=== PATIENT | female | born 1950 | race Caucasian/White ===

== ENCOUNTER 2017-01-22 11:10 | Observation (INO) ==
--- NOTE | 2017-01-22 11:26 | Emergency Department Note ---
Disposition Clinical Impression: Vertigo Headache Qualifiers: Headache type: unspecified Headache chronicity pattern: unspecified pattern Intractability: not intractable Qualified Code(s): R51 - Headache Disposition: Home, Self-Care Referrals: Prieto Diallo DO [Primary Care Provider] - Forms: ED Satisfaction Letter Time of Disposition: 14:13 Dizziness HPI - General Chief Complaint: ED Dizziness Stated Complaint: dizziness Time Seen by Provider: 01/22/17 11:20 Source: patient Limitations: no limitations Nursing Notes Reviewed: Yes Vital Signs Reviewed: Yes - History of Present Illness HPI Narrative: Patient is a 66-year-old female with past medical history of breast cancer, depression. She presents today due to vertigo, headache. Patient says that she follows up with [facility] for cancer care. She is currently on anastrazole and has been on this medication for the past year and a half. She said that she used to be on citalopram for depression but was off it for a couple months. However, she followed up with her primary care physician and was started on citalopram again for depression. This medication was started 3 days ago. 2 days ago, the patient started developing dizziness she describes as the room spinning. She also has generalized headache. This has persisted for the past 2 days. This morning, she woke up and felt unwell, still having vertigo, still having headache. She denies any other numbness, tingling, weakness, falls, injuries, chest pain, shortness of breath, nausea, vomiting, fevers, diarrhea, abdominal pain. At first, they thought this was possibly a medication reaction. However, the patient says that she has been on this medication in the past and this is actually decreased dose from what she was on before. She used to be on 20 mg citalopram and was prescribed 10 mg citalopram this time. - Related Data Home Medications Medication Instructions Recorded Confirmed Aspirin [Adult Low Dose Aspirin EC] 1 tab PO DAILY 08/04/15 08/04/15 Calcium Carbonate/Vitamin D3 2 tab PO DAILY 08/04/15 08/04/15 [Caltrate 600 + D Soft Chew Tab] Citalopram [CeleXA] 1 tab PO DAILY 08/04/15 08/04/15 LORazepam [Ativan] 1 tab PO DAILY 08/04/15 08/04/15 Losartan/Hydrochlorothiazide 1 tab PO DAILY 08/04/15 08/04/15 [Hyzaar 100-25 Tablet] Multivitamin [Multivitamins] 1 tab PO DAILY 08/04/15 08/04/15 Allergies Allergy/AdvReac Type Severity Reaction Status Date / Time No Known Allergies Allergy Verified 01/22/17 11:21 All systems ED: reviewed and negative except as stated. Constitutional: Denies: fever Cardiovascular: Denies: chest pain, palpitations Respiratory: Denies: cough, dyspnea, wheezes Gastrointestinal: Denies: abdominal pain, nausea, vomiting, diarrhea Neurological: Reports: headache, vertigo. Denies: weakness, numbness, paresthesias Psychiatric: Reports: depression. Denies: suicidal thoughts, homicidal thoughts , auditory hallucinations, visual hallucinations Past Medical History - Past Medical History Attestation: Yes The following information was validated with the patient. Source: patient Medical history: Reports: cancer, hypertension Psychiatric history: Reports: depression [employer] history: Reports: non-contributory - Social History Smoking Status: Never smoker Smokeless Tobacco Status: No Alcohol use: Reports: none Drug use: Reports: none Physical Exam - General Limitations: no limitations General appearance: alert, in no apparent distress - Head Head exam: atraumatic, normocephalic, normal inspection - Eye Eye exam: Present: normal appearance, PERRL, EOMI - ENT ENT exam: normal exam, normal oropharynx, mucous membranes moist - Neck Neck exam: Present: normal inspection, full ROM, trachea midline. Absent: tenderness - Chest Chest inspection: Present: normal inspection, symmetric chest wall rise - Respiratory Respiratory exam: Present: normal lung sounds bilaterally - Cardiovascular Cardiovascular exam: Present: regular rate, normal rhythm, normal heart sounds - Abdominal Exam Abdominal exam: Present: soft, Non-Tender. Absent: tenderness, distention, guarding, rebound, rigidity - Extremities Exam Extremities exam: Present: normal inspection, full ROM. Absent: tenderness, pedal edema - Neurological Exam Neurological exam: Present: alert, oriented X3, CN II-XII intact. Absent: motor sensory deficit - Psychiatric Psychiatric exam: Present: normal affect, normal mood - Skin Skin exam: Present: warm, dry, intact, normal color Course Course Narrative: Blood pressure mildly elevated, otherwise, the rest of vitals within normal limits. Physical exam benign. No signs of any head trauma, no tenderness to palpation of the neck or meningeal signs, no focal neurologic deficits, heart and lung exam benign. Abdominal exam benign. patient says that she is not experiencing vertigo at this time. She is declined Antivert. I discussed getting an MRI for investigation of cerebellar infarct. However, she says that she cannot have an MRI due to previous maxillofacial surgery and was told that she was not allowed to have MRI after surgery. Therefore, I will get a CT of the head. We will also give the patient Toradol for headache. Will also obtain basic electrolytes, tropnin, EKG, CXR. 14:03 EKG shows normal sinus rhythm with no acute ST changes. Troponin negative. No major electrolyte abnormality. CBC within normal limits. CT of the head was negative for any acute intracranial abnormality. Chest x-ray was negative for any acute cardiopulmonary process. As also discussed with the patient. For that she is still having headache. She has been having intermittent episodes of vertigo during her stay. She is agreeable with trying Antivert at this time. Also recommended admission for further stroke workup including carotid Doppler. Vital Signs Temperature 97.5 F L 01/22/17 11:18 Pulse Rate 82 01/22/17 11:18 Respiratory Rate 20 01/22/17 11:18 Blood Pressure 159/78 01/22/17 11:18 O2 Sat by Pulse Oximetry 100 01/22/17 11:18 Temperature 97.5 F L 01/22/17 11:18 Pulse Rate 66 01/22/17 14:07 Respiratory Rate 16 01/22/17 14:07 Blood Pressure 167/84 01/22/17 14:07 O2 Sat by Pulse Oximetry 98 01/22/17 14:07 Oxygen Delivery Oxygen Delivery Room Air Dizziness - MDM Narrative Medical decision making narrative: EKG shows normal sinus rhythm with no acute ST changes. Troponin negative. No major electrolyte abnormality. CBC within normal limits. CT of the head was negative for any acute intracranial abnormality. Chest x-ray was negative for any acute cardiopulmonary process. As also discussed with the patient. For that she is still having headache. She has been having intermittent episodes of vertigo during her stay. She is agreeable with trying Antivert at this time. Also recommended admission for further stroke workup including carotid Doppler. This could be medication interaction, inner ear issue, or cerebellar stroke. - Medical Records Medical records reviewed: Yes I reviewed the patient's medical records. - Lab Data Lab results reviewed: Yes I reviewed the patient's lab results. Result diagrams: 01/22/17 12:00 01/22/17 12:00 Lab Results 01/22/17 01/22/17 01/22/17 Range/Units 12:00 12:00 12:00 WBC 8.0 (4.3-11.1) K/mcL RBC 4.44 (3.82-4.97) M/mcL Hgb 12.7 (11.5-15.4) g/dL Hct 38.6 (35.3-44.9) % MCV 86.9 (83.0-100.0) fL MCH 28.6 (28.0-33.3) pg MCHC 32.9 (31.6-35.5) g/dL RDW 12.2 (11.5-14.5) % Plt Count 202 (140-400) K/mcL MPV 9.5 (9.4-12.4) fL Immature Gran % 0.3 (0-4) % Seg Neutrophils % 85.4 % Lymphocytes % 11.5 % Monocytes % 2.3 % Eosinophils % 0.1 % Basophils % 0.4 % Neutrophils # 6.8 (1.6-8.9) K/mcL Lymphocytes # 0.9 (0.6-4.6) K/mcL Monocytes # 0.2 (0.0-1.3) K/mcL Eosinophils # 0.0 (0.0-0.6) K/mcL Basophils # 0.0 (0.0-0.2) K/mcL Sodium 139 (136-145) mEq/L Potassium 3.8 (3.5-4.5) mEq/L Chloride 104 (98-109) mEq/L Carbon Dioxide 28 (19-29) mEq/L BUN 13 (7-20) mg/dL Creatinine 0.81 (0.57-1.11) mg/dL Est GFR ( Amer) > 60 (> 60) Est GFR (Non-Af Amer) > 60 (> 60) BUN/Creatinine Ratio 16 (6-26) Glucose 107 H (70-99) mg/dL POC Glucose (58-89) Calculated Osmolality 289 (280-300) Calcium 9.7 (8.6-10.8) mg/dL Phosphorus 2.2 L (2.3-4.7) mg/dL Magnesium 1.9 (1.6-2.6) mg/dL Troponin I 0.00 (0-0.03) ng/mL 01/22/17 Range/Units 12:06 WBC (4.3-11.1) K/mcL RBC (3.82-4.97) M/mcL Hgb (11.5-15.4) g/dL Hct (35.3-44.9) % MCV (83.0-100.0) fL MCH (28.0-33.3) pg MCHC (31.6-35.5) g/dL RDW (11.5-14.5) % Plt Count (140-400) K/mcL MPV (9.4-12.4) fL Immature Gran % (0-4) % Seg Neutrophils % % Lymphocytes % % Monocytes % % Eosinophils % % Basophils % % Neutrophils # (1.6-8.9) K/mcL Lymphocytes # (0.6-4.6) K/mcL Monocytes # (0.0-1.3) K/mcL Eosinophils # (0.0-0.6) K/mcL Basophils # (0.0-0.2) K/mcL Sodium (136-145) mEq/L Potassium (3.5-4.5) mEq/L Chloride (98-109) mEq/L Carbon Dioxide (19-29) mEq/L BUN (7-20) mg/dL Creatinine (0.57-1.11) mg/dL Est GFR ( Amer) (> 60) Est GFR (Non-Af Amer) (> 60) BUN/Creatinine Ratio (6-26) Glucose (70-99) mg/dL POC Glucose 91 H (58-89) Calculated Osmolality (280-300) Calcium (8.6-10.8) mg/dL Phosphorus (2.3-4.7) mg/dL Magnesium (1.6-2.6) mg/dL Troponin I (0-0.03) ng/mL - Radiology Data Radiology results reviewed: Yes I reviewed the patient's radiology results. Chest X-Ray 01/22/17 11:50 IMPRESSION: No acute abnormality. D/ / Williams Mohan MD / Williams Mohan MD Interpreting Provider: Williams Mohan MD Head CT 01/22/17 11:50 IMPRESSION: No evidence of acute intracranial abnormality. D/ / 01/22/2017 12:40:04 Zaid Lin MD / Lelia Ny Interpreting Provider: Zaid Lin MD - EKG Data EKG attestation: Yes I reviewed and interpreted this EKG. EKG results narrative: 01/22/2017 at 11:34. Normal sinus rhythm. Rate 73. AK 145. QRS 98. QTC 425. No acute ST elevation or depression. S.B.A.R. - S.B.AShantell Situation: Demographics, MOA Background: Presenting Complaint, Relevant PMH, Meds, & Allergies Assessment: Vital Signs, Course and respsone to treatment, Exam Concerns, Patient/Family Expectation, Pertinant Lab Results Recommendation: Barrier(s) to disposition, Recommendation based on pending studies, treatments, or consults S.B.A.RTrisha Report Given to: Dr. Teresa Schmidt Repor Time: 14:13
[2017-01-22] MEDS ORDERED: 0.9 % Sodium Chloride 1,000 ML IVC ONE (11:50)
--- NOTE | 2017-01-22 11:53 | Emergency Department Note ---
START Narrative - START START: I examined this patient and my medical decision-making was reviewed with the emergency medicine resident. I agree with the documented findings, disposition and treatment plan as described except to the extent set forth below. Patient seen with emergency medicine resident Dr. Stepan Pena, Please see a copy of his note for details of the H&P, ED evaluation, management and disposition. I have independently evaluated the patient and confirmed appropriate portions of the history and physical exam. 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 Neurologically nonfocal GCS 15 afebrile with stable vital signs. No loss of consciousness chest pain shortness of breath for trauma. EKG shows sinus rhythm without acute ischemic changes but no old EKG available for comparison troponin screening labs are pending. As well as noncontrast head CT. Patient get IV fluids and antibiotics at this time but declines Antivert because she says "not dizzy right now". Disposition pending.
[2017-01-22 12:12] LABS: Basophils % 0.4 %; Eosinophils % 0.1 %; Hematocrit 38.6 % (35.3-44.9); Hemoglobin 12.7 g/dL (11.5-15.4); Immature Granulocytes % 0.3 % (0-4); Lymphocytes # 0.9 K/mcL (0.6-4.6); Lymphocytes % 11.5 %; Mean Corpuscular HGB Conc 32.9 g/dL (31.6-35.5); Mean Corpuscular Hemoglobin 28.6 pg (28.0-33.3); Mean Corpuscular Volume 86.9 fL (83.0-100.0); Mean Platelet Volume 9.5 fL (9.4-12.4); Monocytes # 0.2 K/mcL (0.0-1.3); Monocytes % 2.3 %; Neutrophils # 6.8 K/mcL (1.6-8.9); Platelet Count 202 K/mcL (140-400); Red Blood Count 4.44 M/mcL (3.82-4.97); Red Cell Distribution Width 12.2 % (11.5-14.5); Segmented Neutrophils % 85.4 %
[2017-01-22 12:37] LABS: BUN/Creatinine Ratio 16 (6-26); Blood Urea Nitrogen 13 mg/dL (7-20); Calcium 9.7 mg/dL (8.6-10.8); Carbon Dioxide 28 mEq/L (19-29); Chloride 104 mEq/L (98-109); Glucose 107 mg/dL (70-99); Magnesium 1.9 mg/dL (1.6-2.6); Osmolality,Calculated 289 (280-300); Phosphorous 2.2 mg/dL (2.3-4.7); Potassium 3.8 mEq/L (3.5-4.5); Sodium 139 mEq/L (136-145); eGFR For African Americans > 60 (> 60); eGFR For Non-African Americans > 60 (> 60)
[2017-01-22] MEDS ORDERED: Ketorolac 15 MG/ML VIAL IVP ONE (13:27)
[2017-01-22] MEDS ORDERED: Ondansetron 4 MG/2 ML VIAL IVP PRN (14:46)
[2017-01-22] MEDS ORDERED: Ibuprofen 400 MG TABLET PO PRN (14:46)
[2017-01-22] MEDS ORDERED: Acetaminophen 325 MG TABLET PO PRN (14:46)
[2017-01-22] MEDS ORDERED: Naloxone 0.4 MG/ML INJ IVP PRN (14:46)
[2017-01-22] MEDS ORDERED: *HR* LORazepam 1 MG TABLET PO PRN (14:49)
--- NOTE | 2017-01-22 14:55 | Internal Med History&Physical ---
Date of Encounter: 01/22/17 Time of Encounter: 14:52 Assessment and Plan (1) Vertigo Current visit: Yes Status: Acute Vertigo versus possible labyrinthitis Continue meclizine as needed, follow precautions, check orthostatics Ordered IV fluids, echocardiogram, telemetry Consider neurology consult if the patient develops more symptoms Omeprazole for GI prophylaxis and subcutaneous heparin for DVT prophylaxis. Patient will be admitted for observation. Full code. Time spent on this admission 40 minutes. High risk of falling (2) Accelerated hypertension Current visit: Yes Status: Acute Continue losartan and hydrochlorothiazide Add hydralazine has needed (3) Depression Current visit: Yes Status: Acute Hold citalopram for now Qualifiers: Depression Type: major depressive disorder Major depression recurrence: recurrent Major depression episode severity: unspecified Qualified Code(s): F33.9 - Major depressive disorder, recurrent, unspecified (4) Breast cancer Current visit: No Status: Acute Continue anastrozole Qualifiers: Breast location: upper inner quadrant of breast Estrogen receptor status: unspecified Patient sex: female Laterality: right Qualified Code(s): C50.211 - Malignant neoplasm of upper-inner quadrant of right female breast Internal Medicine - H&P: HPI Chief complaint: Dizziness Admitted From: Emergency Dept History of present illness: Ms. Huang is a 66 year old female with a past medical history of breast cancer status post chemotherapy and radiotherapy, hypertension, depression comes the emergency room complaining of more than 2 days of dizziness that started yesterday's afternoon. The patient is not sure how long. Lasted less than half an hour and described a spinning sensation that was felt again very early this morning. The symptoms coincided with the patient starting sitology primary again on Monday which she used to take in the past, now she is taking half of the dose which is 10 mg daily. She describes some headache pressure- like in both temporal areas accompanied by nausea. Headache was 5 out of 10 in intensity. Denies any nausea or dizziness at the moment, does not appear to be dehydrated. ER staff obtain a CT scan of the head did not show any abnormality , chest x-ray does not show any cardiac pulmonary disease. They intended to do an MRI but unfortunately the patient had a surgical procedure in the maxillofacial area that included wiring and was told never to have an MRI. The spinning sensation was present in the morning and subsided at the moment. Blood pressure is 167/84, denies any other symptoms Past Med Surg Social Fam HX - Past Medical History Medical history: cancer (Breast cancer status post chemotherapy and radiotherapy ), hypertension, other (Depression, bilateral moderate carotid stenoses 40-59%, anxiety) Psychiatric history: depression - Past Surgical History Surgical History: other (Breast surgery, maxillofacial surgery) - Social History Smoking Status: Never smoker Smokeless Tobacco Status: No Alcohol use: none Drug use: none - Additional Family History Additional family history: Brother with lung cancer, father with prostate cancer , mother with hypertension and CAD, sister with hypertension Internal Medicine - H&P: Meds Aspirin [Adult Low Dose Aspirin EC] 1 tab PO DAILY 08/04/15 [History] Calcium Carbonate/Vitamin D3 [Caltrate 600 + D Soft Chew Tab] 2 tab PO DAILY 04/08 [History] Citalopram [CeleXA] 1 tab PO DAILY 08/04/15 [History] LORazepam [Ativan] 1 tab PO DAILY 08/04/15 [History] Losartan/Hydrochlorothiazide [Hyzaar 100-25 Tablet] 1 tab PO DAILY 08/04/15 [ History] Multivitamin [Multivitamins] 1 tab PO DAILY 08/04/15 [History] 3 Allergy/AdvReac Type Severity Reaction Status Date / Time No Known Allergies Allergy Verified 01/22/17 11:21 All Systems PM: A 10-system review of systems was performed and is negative for pertinent findings except as documented above in the HPI. Review of systems: Mild headache, other systems out of the 10 reviewed were negative - Constitutional Vitals: Temp Pulse Resp BP Pulse Ox 97.5 F L 66 16 167/84 98 01/22/17 11:18 01/22/17 14:07 01/22/17 14:07 01/22/17 14:07 01/22/17 14:07 General appearance: Present: A&O X 3 (No nystagmus) - Head Head exam: Present: atraumatic, normocephalic - Eye Eye exam: Present: PERRL, conjuntiva pink, sclera anicteric Pupils: Present: PERRL - Neck Neck exam general surgery: Present: supple, trachea midline. Absent: lymphadenopathy - Respiratory Respiratory exam: Present: CTAB. Absent: accessory muscle use, rales, rhonchi, wheezes - Cardiovascular Cardiovascular exam: Present: RRR, +S1, +S2. Absent: diastolic murmur, gallop, rubs, systolic murmur - GI/Abdominal GI/Abdominal exam: Present: normal bowel sounds, soft, no peritoneal signs. Absent: distended, tenderness - Extremities Exam Extremities exam: Present: warm, radial pulses palpable and symmetrical. Absent : calf tenderness, cyanotic, pedal edema - Neurological Exam Neurological exam: Present: CN II-XII intact, oriented X3, no focal deficits. Absent: pronater drift, facial droop, speech deficit - Skin Skin exam: Present: dry, intact Internal Med - H&P Results - Labs CBC & Chem 7: 01/22/17 12:00 01/22/17 12:00
[2017-01-22] MEDS: 0.9 % Sodium Chloride 1,000 ML IVC SCH (17:02)
[2017-01-22] MEDS: Losartan/HCTZ 50-12.5 TABLET PO SCH (17:02)
[2017-01-22] MEDS: *HR* Heparin 5,000 UNIT/ML VIAL SQ SCH ×2 (17:02→20:56)
[2017-01-23 05:22] LABS: BUN/Creatinine Ratio 11 (6-26); Blood Urea Nitrogen 9 mg/dL (7-20); Calcium 8.9 mg/dL (8.6-10.8); Carbon Dioxide 27 mEq/L (19-29); Chloride 108 mEq/L (98-109); Chol/HDL Ratio 3.1 (0-4.9); Cholesterol 148 mg/dL (< 200); Glucose 90 mg/dL (70-99); HDL Cholesterol 47 mg/dL (40-59); LDL Cholesterol,Calculated 88 mg/dL (0-99); Osmolality,Calculated 290 (280-300); Potassium 3.4 mEq/L (3.5-4.5); Sodium 141 mEq/L (136-145); Triglycerides 64 mg/dL (< 150); eGFR For African Americans > 60 (> 60); eGFR For Non-African Americans > 60 (> 60)
[2017-01-23] MEDS ORDERED: Furosemide 40 MG/4 ML VIAL IVP ONE (05:56)
[2017-01-23] MEDS: *HR* Heparin 5,000 UNIT/ML VIAL SQ SCH (06:09)
[2017-01-23 07:09] VITALS: BP 151/78
[2017-01-23] MEDS ORDERED: Anastrozole 1 MG TABLET PO SCH (09:00)
[2017-01-23] MEDS ORDERED: Aspirin Enteric Coated 81 MG Tablet PO SCH (09:00)
[2017-01-23] MEDS: 0.9 % Sodium Chloride 1,000 ML IVC SCH (09:11)
[2017-01-23] MEDS: Losartan/HCTZ 50-12.5 TABLET PO SCH (09:13)
--- NOTE | 2017-01-23 09:17 | Discharge Summary ---
<Lazara Dozier - Last Filed: 01/23/17 09:14> Date of Encounter: 01/23/17 Time of Encounter: 09:14 - Discharge Diagnosis (1) Vertigo Priority: Primary Status: Acute Comments: Vertigo versus possible labyrinthitis patient reports that the dizziness has resolved -meclizine -IV fluids, telemetry -echocardiogram results pending (2) Accelerated hypertension Priority: Secondary Status: Acute Comments: History of hypertension Continue losartan and hydrochlorothiazide (3) Depression Priority: Secondary Status: Acute Comments: History of depression hold citalopram for now Qualifiers: Depression Type: major depressive disorder Major depression recurrence: recurrent Major depression episode severity: unspecified Qualified Code(s): F33.9 - Major depressive disorder, recurrent, unspecified (4) Breast cancer Priority: Secondary Status: Acute Comments: Continue anastrozole Qualifiers: Breast location: upper inner quadrant of breast Estrogen receptor status: unspecified Patient sex: female Laterality: right Qualified Code(s): C50.211 - Malignant neoplasm of upper-inner quadrant of right female breast - Discharge Medications Prescriptions: Meclizine [Antivert] 25 mg PO BID PRN 7 Days #14 tablet PRN Reason: Dizziness Home Medications: Aspirin [Adult Low Dose Aspirin EC] 1 tab PO DAILY 08/04/15 [History] Calcium Carbonate/Vitamin D3 [Caltrate 600 + D Soft Chew Tab] 2 tab PO DAILY 04/08 [History] Citalopram [CeleXA] 1 tab PO DAILY 08/04/15 [History] LORazepam [Ativan] 1 tab PO DAILY 08/04/15 [History] Losartan/Hydrochlorothiazide [Hyzaar 100-25 Tablet] 1 tab PO DAILY 08/04/15 [ History] Multivitamin [Multivitamins] 1 tab PO DAILY 08/04/15 [History] Anastrozole [Arimidex] 1 mg PO DAILY tablet 01/23/17 [Rx] Meclizine [Antivert] 25 mg PO BID PRN 7 Days #14 tablet 01/23/17 [Rx] Allergies/Adverse Reactions: 3 Allergy/AdvReac Type Severity Reaction Status Date / Time No Known Allergies Allergy Verified 01/22/17 11:21 Procedures/tests Complete & Pending: Procedures Performed prior 72 hours Category Date Time Status EV echo with saline Routine Y 01/23/17 14:51 Ordered Date of admission: 01/22/17 14:36 Primary care physician: Prieto Diallo, Discharging clinician: Fredis Santacruz - Patient Status Disposition: Home, Self-Care Condition: Good Functional capacity at discharge: independent ambulation Overall status at discharge: patient is back to baseline - Discharge Instructions Instructions: Vertigo (DC), Dizziness (GEN) Follow Up With: Prieto Diallo, [Primary Care Provider] - 01/30/17 9:30 am Additional Instructions: Follow-up with your primary care physician in about a week return to the hospital if the vertigo were to worsen, change in vision, passing out. You may return to your usual activities with caution - Diet and Activity Activity: resume usual activities as tolerated Diet: advance to your usual diet Hospital course: Ms. Huang is a 66 year old female with a past medical history of breast cancer status post chemotherapy and radiotherapy, hypertension, depression comes the emergency room complaining of more than 2 days of dizziness that started yesterday's afternoon. The patient is not sure how long. Lasted less than half an hour and described a spinning sensation that was felt again very early this morning. The symptoms coincided with the patient starting sitology primary again on Monday which she used to take in the past, now she is taking half of the dose which is 10 mg daily. She describes some headache pressure- like in both temporal areas accompanied by nausea. Headache was 5 out of 10 in intensity. Denies any nausea or dizziness at the moment, does not appear to be dehydrated. ER staff obtain a CT scan of the head did not show any abnormality , chest x-ray does not show any cardiac pulmonary disease. They intended to do an MRI but unfortunately the patient had a surgical procedure in the maxillofacial area that included wiring and was told never to have an MRI. The patient was admitted and started on meclizine, fluid, telemetry monitoring. Echocardiogram was ordered and results are pending. The patient reports that the vertigo has subsided and she feels that she is back to baseline. She stated that she is ready to go back home and be discharged. She denies change in vision, change in small, headache, chest pain, nausea, vomiting, shortness of breath, dizziness, weakness, syncope. Choose instructed to follow-up with her PCP in about a week interchange the hospital should she worsen. She stated clear understanding of the treatment plan and all questions were answered. - Time Spent with Patient Total time spent providing and/or coordinating discharge services: - Constitutional Vitals: Temp Pulse Resp BP Pulse Ox 98.2 F 79 14 151/78 96 01/23/17 07:08 01/23/17 07:08 01/23/17 07:08 01/23/17 07:08 01/23/17 07:08 General appearance: Present: A&O X 3 (No nystagmus) Exam: Gen.: Vitals noted. No acute distress. AAOx3 HEENT: oropharynx clear, Normocephalic, atraumatic Cardiac: RRR, no murmur, +S1/S2 Pulmonary: CTA bilaterally, no wheezes, rales or rhonchi, equal chest expansion MSK: ROM intact, no joint swelling noted Extremities: no BLE edema, nontender calf, no cyanosis or clubbing Neuro: A&Ox3, moves all extremities, no focal deficits Psych: Appropriate mood and behavior <Fredis Santacruz - Last Filed: 01/23/17 10:09> Date of Encounter: 01/23/17 - Discharge Diagnosis (1) Vertigo Status: Acute (2) Accelerated hypertension Status: Acute (3) Depression Status: Acute Qualifiers: Depression Type: major depressive disorder Major depression recurrence: recurrent Major depression episode severity: unspecified Qualified Code(s): F33.9 - Major depressive disorder, recurrent, unspecified (4) Breast cancer Status: Acute Qualifiers: Breast location: upper inner quadrant of breast Estrogen receptor status: unspecified Patient sex: female Laterality: right Qualified Code(s): C50.211 - Malignant neoplasm of upper-inner quadrant of right female breast Procedures/tests Complete & Pending: Procedures Performed prior 72 hours Category Date Time Status EV echo with saline Routine Y 01/23/17 14:51 Completed Date of admission: 01/22/17 14:36 Primary care physician: Prieto Diallo, [facility] course: Ms. Huang is a 66 year old female - Time Spent with Patient Total time spent providing and/or coordinating discharge services: - Constitutional Vitals: Temp Pulse Resp BP Pulse Ox 98.2 F 79 14 151/78 96 01/23/17 07:08 01/23/17 07:08 01/23/17 07:08 01/23/17 07:08 01/23/17 09:12 - Attending Attestation Echocardiogram shows normal ejection fraction with moderate diastolic dysfunction, no other abnormalities Continue meclizine as needed Time spent on this discharge 40 minutes I examined this patient and my medical decision-making was reviewed with the Resident Physician. I agree with the documented findings, disposition and treatment plan as described except to the extent set forth below.
--- NOTE | 2017-01-23 18:42 | Electrocardiograph Report ---
[place] [id number] Test Date: 2017-01-22 Pat Name: Brenna Huang Department: 103 Room: 3B Gender: F Hay Stacker: : [id number] Requested By: Stepan Funez Order Number: [id number] Reading MD: Yao Herman MD Measurements Intervals [place] Rate: 73 P: 65 LA: 145 QRS: 71 QRSD: 98 T: 49 QT: 399 QTc: 425 Interpretive Statements SINUS RHYTHM VOLTAGE CRITERIA FOR LVH Electronically Signed On 01-23-2017 18:41:32 EDT by Yao Herman MD
== END 2017-01-23 10:30 | disposition home or self-care (01) ==
LOC: 3BNU 11:10 → EMEROO 11:10 → SUATTDRO 14:36 → 3BNU 15:07
PROVIDERS: ADMIT Internal Medicine; ATTEND Internal Medicine